=== PATIENT | female | born 1950 | race Asian ===

== ENCOUNTER → 2018-04-11 | Outpatient (CLI) | payer MEDICARE, BC ==
[~2018-04-11] MED LIST: ALENDRONATE SOD70 MG PO; IRON PO; LEVOXYL125 MCG PO; MULTIVITAMINS1 EAC7 PO; VITAMIN D-32000 UNIT PO
== END ==
LOC: MAMMO 13:00
PROVIDERS: ATTEND Family Medicine
DX: Z12.31 Encounter for screening mammogram for malignant neoplasm of breast (principal)
CPT/HCPCS: 77067

== ENCOUNTER → 2018-10-28 | Outpatient (CLI) | payer MEDICARE, BC ==
--- NOTE | 2018-10-28 13:01 | Diagnostic Imaging Report ---
Exam: Bone mineral density study. History: Osteopenia. Comparison: None Discussion: Evaluation of the left hip, and lumbar spine was performed utilizing DEXA Hologic bone densitometer. The study is technically adequate. Surgical hardware is seen over the lower lumbar spine. Left hip total bone mineral density: 0.785gm/cm2, T-score is -1.3, Z-score is 0.2. Left hip femoral neck bone mineral density: 0.631gm/cm2, T-score is -2.0, Z-score is -0.2. Lumbar spine total bone mineral density:0.711gm/cm2, T-score is-2.4, Z-score is -0.4. Impression: 1. Osteopenia of the left hip, fracture risk is increased 2. Osteopenia of the lumbar spine, fracture risk is increased. The BMD change versus baseline is -7.5% and the BMD change versus previous -2.8% Least significant change (LSC) for bone mineral density as provided by administrative assistant data entry is 0.023 g/cm2 for lumbar spine and 0.027 g/cm2 for total hip. 10 -year fracture risk per WHO Fracture Risk Assessment Tool (FRAX) for: Not reported because patient treated for osteoporosis. The patient's fracture risk is compared to an age-matched control. Medical evaluation for secondary causes of low bone bone mineral density may be appropriate. Correlate clinically for the necessity and timing of the next bone mineral density study. Signed by: Dr. Reynaldo Almazan M.D. on 10/28/2018 12:58 PM
== END ==
LOC: DX 10:11
PROVIDERS: ATTEND Family Medicine
DX: M81.0 Age-related osteoporosis without current pathological fracture (principal)
CPT/HCPCS: 77080

== ENCOUNTER → 2020-03-04 | Outpatient (CLI) | payer MEDICARE ==
--- NOTE | 2020-03-08 10:39 | Diagnostic Imaging Report ---
Exam: Bone mineral density study. History: Osteopenia. Comparison: October 28, 2018 Discussion: Evaluation of the left hip and lumbar spine was performed utilizing DEXA Hologic bone densitometer. The study is technically adequate. Left hip total bone mineral density: 0.767gm/cm2, T-score is -1.4, Z-score is 0.2. Left hip femoral neck bone mineral density: 0.630gm/cm2, T-score is -2.0, Z-score is -0.1. Lumbar spine total bone mineral density:0.736gm/cm2, T-score is-2.2, Z-score is -0.1. Impression: 1. Osteopenia of the left hip, fracture risk is increased 2. Osteopenia of the lumbar spine, fracture risk is increased The BMD change versus baseline is -9.6% and the BMD change versus previous -2.2% . Least significant change (LSC) for bone mineral density as provided by technical support assistant is 0.023 g/cm2 for lumbar spine and 0.027 g/cm2 for total hip. 10 -year fracture risk per WHO Fracture Risk Assessment Tool (FRAX) for: Major osteoporotic fracture is 10.0% Hip fracture is 2.2% The above fracture probability is calculated for an untreated patient. Fracture probably may be lower if the patient has received treatment. All treatment decisions require clinical judgment and consideration of individual patient factors, including patient preferences, comorbidities, previous drug use and risk factors not captured in the FRAX model (e.g. frailty, falls, vitamin D deficiency, increased bone turnover, interval significant decline in BMD). The patient's fracture risk is compared to an age-matched control. Medical evaluation for secondary causes of low bone bone mineral density may be appropriate. Correlate clinically for the necessity and timing of the next bone mineral density study. Signed by: Dr. Reynaldo Almazan M.D. on 03/08/2020 10:36 AM
== END ==
LOC: DX 14:20
PROVIDERS: ATTEND Internal Medicine Endocrinology, Diabetes & Metabolism
DX: M81.0 Age-related osteoporosis without current pathological fracture (principal)
CPT/HCPCS: 77080

== ENCOUNTER → 2020-03-05 | Outpatient (CLI) | payer MEDICARE ==
--- NOTE | 2020-03-05 10:24 | Diagnostic Imaging Report ---
EXAM: Right upper quadrant abdominal ultrasound INDICATION: Abnormal LFTs COMPARISON: None. TECHNIQUE: Transverse and longitudinal images of the right upper quadrant abdomen were obtained FINDINGS: Liver: Size: 10.2 cm in the right midclavicular line, normal Appearance: Mildly increased echogenicity, smooth contour Mass: No focal masses Gallbladder: No gallbladder distension, pericholecystic fluid, wall thickening, stone, or reported sonographic Lehman's sign. Gallbladder wall measures 3 mm. Bile Ducts: Intrahepatic Ducts: No dilatation Extrahepatic Ducts: Common bile duct measures 2 mm Pancreas: Visualized portions of the pancreatic head, neck and proximal body are normal. Kidney: The right kidney measures 9.6 cm without evidence of hydronephrosis or stone. 2.0 cm simple cyst. Vessels: Aorta: Visualized portions are normal Inferior Vena Cava: Visualized portions are normal Main Portal Vein: 1.1 cm, normal size with hepatopetal flow. Free Fluid: No ascites or pleural effusion IMPRESSION: Mild hepatic steatosis. No sonographic evidence of cholelithiasis or cholecystitis. Signed by: Chaitanya Landrum MD on 03/05/2020 10:20 AM
== END ==
LOC: US 08:44
PROVIDERS: ATTEND Internal Medicine Gastroenterology
DX: R94.5 Abnormal results of liver function studies (principal)
CPT/HCPCS: 76705

== ENCOUNTER → 2020-03-19 | Outpatient (CLI) | payer MEDICARE, BC, OTHER ==
[~2020-03-19] MED LIST changes: +CALCIUM CARBON500 MG PO
[2020-03-19 12:23] LABS: BASOPHILS % 0.4 % (0.0-1.0); EOSINOPHILS # (AUTO) 0.1 (0.0-0.4); EOSINOPHILS % 1.6 % (0.0-6.0); HEMATOCRIT 33.8 % (34.2-44.1); HEMOGLOBIN 10.9 g/dL (12.0-16.0); LYMPHOCYTES # (AUTO) 0.8 (1.0-3.2); LYMPHOCYTES % 14.2 % (18.0-39.1); MEAN CORPUSCULAR HEMOGLOBIN 30.8 pg (28-32); MEAN CORPUSCULAR HGB CONC 32.2 g/dL (31-35); MEAN CORPUSCULAR VOLUME 95.5 fL (81-99); MONOCYTES # (AUTO) 0.3 (0.2-0.8); MONOCYTES % 6.1 % (4.4-11.3); NEUTROPHILS # (AUTO) 4.3 (2.1-6.9); NEUTROPHILS % 77.5 % (38.7-80.0); PLATELET COUNT 129 x10e3/uL (140-360); RED BLOOD COUNT 3.54 x10e6/uL (3.6-5.1)
== END | disposition home or self-care (01) ==
LOC: RAD 05:00 → OR 03-24 11:12 → EDSTATUS 03-24 12:30
PROVIDERS: ATTEND Internal Medicine Gastroenterology
DX: R19.5 Other fecal abnormalities (principal); D64.9 Anemia, unspecified; R63.4 Abnormal weight loss; Z01.810 Encounter for preprocedural cardiovascular examination; Z01.812 Encounter for preprocedural laboratory examination; Z11.59 Encounter for screening for other viral diseases; Z53.9 Procedure and treatment not carried out, unspecified reason
CPT/HCPCS: 36415; 85025; 93005; U0002